=== PATIENT | female | born 1990 | race African-American/Black ===

== ENCOUNTER 2017-05-18 19:30 | Emergency (ER) | payer OTHER ==
[~2017-05-18] VITALS: Ht 157.5 cm; Wt 63.5 kg
[2017-05-18] MEDS ORDERED: IBUPROFEN 600600 M1 PO (21:04)
== END 2017-05-18 21:10 | disposition home or self-care (01) ==
LOC: ER 19:30
DX: S63.501A Unspecified sprain of right wrist, initial encounter (principal); X58.XXXA Exposure to other specified factors, initial encounter; Y93.89 Activity, other specified; Y92.89 Other specified places as the place of occurrence of the external cause; Y99.8 Other external cause status